=== PATIENT | female | born 1940 | race Caucasian/White ===

== ENCOUNTER 2023-02-14 09:48 | Day surgery (SDC) | payer MEDICARE, OTHER ==
[~2023-02-14 09:48] MED LIST: LACTATED RINGERS 1,000 ML IV SCH; LIDOCAINE 1% (10MG/ML) FOR IV START INTRADERMA PRN; ONDANSETRON 4 MG/2 ML VIAL IVP PRN
[2023-02-14 10:50] VITALS: TEMP 97.2
[2023-02-14] MEDS ORDERED: PROPOFOL 10 MG/ML 20 ML VIAL IV ONE (11:35)
[2023-02-14] MEDS ORDERED: LIDOCAINE 2% INJ 20 MG/ML (2 ML VIAL) ONE (11:35)
--- NOTE | 2023-02-14 11:47 | P.PCN ---
Date of Procedure: 02/14/23 Procedure(s) Performed: BRIEF HISTORY: Patient is a 83-year-old, pleasant, white female scheduled for an upper endoscopy as a part of evaluation of intermittent dysphagia to solids for the last 6 months duration. PROCEDURE PERFORMED: Esophagogastroduodenoscopy With biopsy and dilation PREOPERATIVE DIAGNOSIS: intermittentdysphagia to solids. IV sedation per anesthesia. PROCEDURE: After informed consent was obtained, the patient was brought into the endoscopy unit. IV sedation was administered by Anesthesia under continuous monitoring. Initially the Olympus GIF-140 video endoscope was inserted into the mouth. Esophagus intubated without any difficulty. It was gradually advanced into the stomach and duodenum and carefully examined. The bulb and the second part of the duodenum appeared normal. The scope at this time was withdrawn to the stomach, adequately insufflated with air, and upon careful examination, mucosa of the antrum, body, cardia and the fundus appeared normal. The scope was then withdrawn into the esophagus. small hiatal hernia noted.The GE junction was located at 39 cm from the incisors. mild patent distal esophageal Schatzki's ring identified at the GE junction. This was dilated using 18-20 mm TTS balloon in a sequential fashion for 30 seconds. The rest of the esophagus appeared normal. There were no erosions or ulcerations seen , multiple biopsies were done from mid and distal esophagus and the patient tolerated the procedure well. IMPRESSION: 1. Small hiatal hernia. 2. Distal esophageal whitish patent Schatzki's ring status post balloon dilation using 18-20 mm TTS balloon as described above. RECOMMENDATIONS: The findings of this examination were discussed with the patient well as her family. She was advised to be on a clear liquid diet for 2 hours. Continue with omeprazole 20 mg daily and follow antireflux measures. She was advised to follow with the office in 3 months
[2023-02-14 12:25] VITALS: BP 155/78; PULSE 76; RESP 18
== END 2023-02-14 12:34 | disposition home or self-care (01) ==
LOC: ORWHC2ENDO 09:48
PROVIDERS: ATTEND Internal Medicine Gastroenterology
DX: K21.00 Gastro-esophageal reflux disease with esophagitis, without bleeding (principal); K22.2 Esophageal obstruction; K44.9 Diaphragmatic hernia without obstruction or gangrene; E78.5 Hyperlipidemia, unspecified; Z79.82 Long term (current) use of aspirin; Z79.899 Other long term (current) drug therapy; Z85.3 Personal history of malignant neoplasm of breast; Z88.5 Allergy status to narcotic agent; Z88.6 Allergy status to analgesic agent
CPT/HCPCS: 43239; 88305; 43249; J2704; J2001; C1726; 45380